=== PATIENT | female | born 1985 | race Caucasian/White ===

== ENCOUNTER → 2025-08-19 08:07 | Outpatient (REF) | payer BC, SELFPAY | LOC: EMG 08:07 | PROVIDERS: ATTENDING PHYSICIAN Student in an Organized Health Care Education/Training Program; FAMILY PHYSICIAN Family Medicine | DX: G56.22 Lesion of ulnar nerve, left upper limb (principal); R20.0 Anesthesia of skin | CPT/HCPCS: 95886; 95909 ==